=== PATIENT | female | born 1980 | race Caucasian/White ===

== ENCOUNTER 2022-07-05 09:22 | Outpatient (REF) | payer OTHER, SELFPAY ==
--- NOTE | ~2022-07-05 | MR_ITS ---
EXAMINATION: MR BRAIN WITHOUT AND WITH CONTRAST CLINICAL INFORMATION: Seizure. COMPARISON: None available. TECHNIQUE: MRI of the brain was obtained using routine sequences without and following the administration of 7.5 mL of Gadavist intravenous contrast. FINDINGS: No focal restricted diffusion is demonstrated to suggest acute or subacute cerebral ischemia. No evidence of acute hemorrhagic products on heme-sensitive imaging. Small focus of restricted diffusion within the deep white matter of the left frontal lobe consistent with petechial microhemorrhage. There is a region of cortical/subcortical T2 FLAIR hyperintensity surrounding a single sulcus in the posterior left parietal lobe without associated restricted diffusion nor enhancement. No overt volume loss at this time. Adjacent tiny developmental venous anomaly. No additional parenchymal signal abnormality. The ventricles are normal in morphology and size. No abnormal mass effect. No midline shift. The hippocampi are symmetric in size, contour, and signal intensity. The temporal horns appear symmetric. Normal appearance of the pituitary gland. Normal positioning of the cerebellar tonsils. Normal arterial and venous vascular flow voids are present. No abnormal contrast enhancement. Normal, homogeneous marrow signal. Mild mucosal thickening of the paranasal sinuses. No signal abnormalities within the mastoids. MR/MR head/brain wo/w con IMPRESSION: 1. Nonspecific region of cortical/subcortical T2 FLAIR hyperintensity surrounding a single sulcus in the posterior left parietal lobe. No associated restricted diffusion, enhancement, or volume loss. This appearance is nonspecific but may represent sequela of a subacute/chronic insult or underlying cortical dysplasia. Additionally, there is a tiny adjacent developmental venous anomaly of indeterminate clinical significance. 2. No additional acute intracranial abnormalities. No abnormal intracranial enhancement.
== END 2022-07-05 09:23 | disposition home or self-care (01) ==
LOC: HO.MRI 09:22
PROVIDERS: PCP Family Medicine; Visit Provider Psychiatry & Neurology Neurology
DX: G40.909 Epilepsy, unspecified, not intractable, without status epilepticus (principal)
CPT/HCPCS: 70553; A9585

== ENCOUNTER 2024-09-15 09:56 | Outpatient (REF) | payer OTHER, SELFPAY ==
--- NOTE | ~2024-09-15 | MR_ITS ---
EXAMINATION: MR BRAIN WITHOUT CONTRAST CLINICAL INFORMATION: Seizure disorder. COMPARISON: July 05, 2022. TECHNIQUE: MRI of the brain was obtained using routine sequences without contrast. FINDINGS: There is a focal cortical hyperintense T2 FLAIR no restricted signal abnormality centered in the superior lateral left occipital lobe posterior to the parieto-occipital sulcus without associated volume loss. Focal susceptibility signal in the left frontal deep white matter. No acute intracranial hemorrhage, mass effect, midline shift, hydrocephalus or herniation. Gomez-white matter differentiation is normal. Flow-void signal within the main cerebral vessels is normal. Sellar/suprasellar region is normal. Craniocervical junction is intact and normal. Midline structures are normal. 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 Cavernoma, left frontal white matter. Recommend IV contrast enhanced high-resolution MRI brain. Electronically signed by: Joe Overton MD 09/15/2024 11:28 AM EDT
== END 2024-09-15 09:57 | disposition home or self-care (01) ==
LOC: HO.MRI 09:56
PROVIDERS: PCP Family Medicine; Visit Provider Registered Nurse
DX: G40.909 Epilepsy, unspecified, not intractable, without status epilepticus (principal)
CPT/HCPCS: 70551

== ENCOUNTER → 2024-09-15 10:07 | Outpatient (BNV) | payer OTHER, SELFPAY | PROVIDERS: PCP Family Medicine; Visit Provider Radiology Diagnostic Radiology | DX: G40.89 Other seizures (principal) | CPT/HCPCS: 70551 ==

== ENCOUNTER 2025-02-16 14:46 | Outpatient (AMB) | payer OTHER, SELFPAY ==
--- NOTE | 2025-02-16 14:49 | A.OFFVIS_ITS ---
Intake Visit Reasons: 3m Accompanied by: Mother Allergies phenytoin (From Dilantin) Allergy (Unknown, Verified 02/16/25 14:56) Unknown Medication List - Last Reconciled 02/16/25 by Ivana Naqvi CNP cetirizine 10 mg PO DAILY levetiracetam 2,000 mg PO Q12H lorazepam 0.5 mg PO Q12H PRN HPI Comments Details: She had small episode on 02/12/2025 while waiting at bus stop for children where she could not get words out when talking with neighbor. She was able to call her mother and say mom, and she came to bus stop. It lasted less than few minutes. She was under more stress recently with children back to school and working more. She was able to take some time off work during the summer. She was also some stress as her father had some health issues and was in the hospital, and was recently diagnosed with AD. Sleep was not so good, having some trouble falling asleep. No missed doses of levetiracetam. She has not tried lorazepam. She had an episode on 09/22/2024 which she believes may have been triggered by stress. She suddenly did not feel well when putting her children to bed and told her son to call her mom who lives next door, which is the last thing she remembers. She does not remember him making the call. Her mother wrote a detailed note of the events that night which was scanned into [facility] chart. Her mother arrived a few minutes later and found her on the couch with her eyes rolled, drooling and foaming at the mouth. It lasted a few minutes. She bit her lip and both sides of her tongue. She was confused for a couple minutes afterwards and vomited. She also had some headache after. She was very tired the next day and had to take the day off work. She started increased dose of levetiracetam on 09/23/2024 and has been taking 2000mg twice a day since. Her mother has noticed an improvement in symptoms with increased dose, word retrieval and comprehension are better, which she agrees with. In 08/2024, she felt more spacey and blurry. She was having more episodes of transient speech impairment, feeling stuck for words or having trouble finding words and could not speak, usually lasting few seconds. Her mother noticed it happen when talking on the phone and sometimes her children noticed. It was previously happening more often at night and around period, but was happening anytime. She occasionally missed dose of levetiracetam 500mg 2 tablets three times a day. 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 Sleep was so-so. Still has some stress. Works 30hr/week and has two children (ages 7 and 9). Not exercising. Gets some headaches around menses, usually left sided with slight sonophobia relieved by ibuprofen. Symptoms are generally worse in winter and colder weather. No further episodes of rash or hives. Had itchy rash in 09/2022 and had and hives on upper legs, under arms, and near eyes with scratchy throat in 12/2022 after starting new bottle Keppra. Occasional black spots in the vision for a minute or two without headache. Symptoms generally better in summer. Gets blank spells where she cannot comprehend for several seconds about 1-2/ month, usually around her periods and when nervous or tired. Can't come up with right word at the time. Vision gets swirling and mind is not quite there. No loss of awareness. Can still converse and has some fading out like not there. She first started having seizures around 2004. Most of her seizures have been during sleep. She had generalized tonic-clonic convulsions with tongue biting, incontinence, followed by confusion headache and achiness. Her last seizure was around 2009. She will sometimes get an aura where she sees spots in her vision and feels like she is going to fall and feels funny. It lasts for a few minutes and is followed by a seizure. The auras occurred she started sleep deprived of stressed. She can focus and talk to people and keep her from going into a full- blown seizure. She has a family history of seizures in her mother during her reproductive years, a maternal uncle and a second cousin on the father's side. At one point she was in both Keppra and zonisamide. Review of Systems Const Denies chills, Denies daytime sleepiness, Denies difficulty sleeping, Denies fatigue, Denies fever(s), Denies frequent falls, Denies headache(s), Denies increased appetite, Denies poor appetite, Denies snoring, Denies weakness, Denies weight gain and Denies weight loss Eyes Denies loss of vision ENT Denies vertigo, Reports dizziness, Denies headache(s) and Denies neck pain Card Denies chest pain at rest, Denies chest pain with activity, Denies syncope, Denies leg edema, Denies palpitations, Denies dyspnea and Denies dyspnea on exertion Resp Denies cough, Denies dyspnea, Denies dyspnea on exertion and Denies snoring GI Denies abdominal pain, Denies constipation, Denies heartburn, Denies diarrhea and Denies nausea Denies urinary frequency, Denies urinary incontinence and Denies urinary urgency Musc Denies abnormal gait, Denies back pain, Denies myalgias, Denies arthralgias, Denies neck pain, Denies numbness and Denies tingling Neuro Denies abnormal gait, Denies vertigo, Reports dizziness, Denies syncope, Denies frequent falls, Denies headache(s), Denies lack of coordination, Denies loss of vision, Denies memory loss, Denies numbness, Denies Other visual disturbances, Denies restless legs, Denies seizure-like activity, Denies tingling, Denies paresthesias, Denies tremor(s) and Denies weakness Psych Reports anxiety, Denies depression, Denies auditory hallucinations, Denies memory loss, Denies visual hallucinations and Reports other (stress) Endo Denies fatigue and Denies palpitations Physical Exam Const Other: General Appearance:? normal, in no acute distress. Heart:? S1, S2 normal, no murmurs. Lungs:? clear anteriorly and posteriorly. Musculoskeletal:? normal. Extremities:? no edema. Psych:? alert, oriented, cognitive function intact, cooperative with exam. Neuro Other: Abnormal Neurological Findings:?none.? Mental Status: alert and oriented X 3. Normal attention, orientation, memory, and affect. Cranial Nerves: Pupils are equal, round, and reactive to light. External ocular muscles are intact. Visual puentes are full, no ptosis. Face is symmetrical, no f acial weakness or droop. Facial sensations are normal. Tongue protrudes in midline. Palate elevates symmetrically. Shoulder shrugging is normal Motor Examination: Normal muscle tone, bulk and strength. No atrophy or fasciculations. No drift of the extended upper extremities. DTR 2+. Plantars are flexor. Sensory Exam: Normal light touch, temperature, pinprick, vibration, and joint- position sensations. Rhomberg sign is absent. Coordination: No ataxia. No titubation. Gait Exam: Within normal limits. Cerebellar Signs: [id number] and [id number] is normal. No dysdiadochokinesia. Extrapyramidal System: No tremor, rigidity with normal facial expressions. No bradykinesia. No bradyphrenia. Normal arm swing and posture. No propulsion or retropulsion. Speech: Normal. No dysphasia or dysarthria. Results Reviewed Results Reviewed: 07/05/22 EEG-an active seizure focus in the left temporo parietal region with secondary spread. 07/05/22 MRI : Nonspecific region of cortical/subcortical T2 FLAIR hyperintensity surrounding a single sulcus in the posterior left parietal lobe. No associated restricted diffusion, enhancement, or volume loss. This appearance is nonspecific but may represent sequela of a subacute/chronic insult or underlying cortical dysplasia. Additionally, there is a tiny adjacent developmental venous anomaly of indeterminate clinical significance. 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 Continue lorazepam 0.5mg 1 tablet as needed q12h for anxiety/seizures, use/side effects reviewed #20 for 30 days. (2) Menstrual migraine: Code(s): G43.829 - Menstrual migraine, not intractable, without status migrainosus Category: Medical Qualifiers: Status migrainosus presence: without status migrainosus Intractability: not intractable Qualified Code(s): G43.829 - Menstrual migraine, not intractable, without status migrainosus (3) Anxiety: Code(s): F41.9 - Anxiety disorder, unspecified Category: Medical Plan: Start sertraline 25mg 1 tablet daily, use/side effects reviewed. Plan . Medications: New sertraline 25 mg PO DAILY 30 tabs 1RF 30 days levetiracetam Mylan only 2,000 mg (4 x 500 mg) PO Q12H 720 tabs 1RF 90 days Coding Level of Care Code Est Pt Level 4 (50607) Diagnoses Seizure disorder G40.909 Menstrual migraine without status migrainosus, not intractable G43.829 Status migrainosus presence: without status migrainosus Intractability: not intractable Anxiety F41.9
--- OUTSIDE RECORDS SUMMARY | 2025-02-16 17:13 | XMS_ITS | Clinical Summary ---
Author Organization [facility] Address [address] [place] [id number] Phone Care Team Providers Care Casting Supervisor Name Role Phone Meghan Myers CNM Unavailable Kylee Diehl MD Unavailable Ifeoma Nunez MD Primary Care Provider Allergies Active Allergy Reactions Criticality Noted Date Comments Phenytoin Sodium Extended Rash Low 05/20/2017 Medications levETIRAcetam (KEPPRA) 500 MG tablet 500 mg 3 (three) times a day. 2 tablets 3x a day = 3,000 mg per day Active multivitamins capsule as directed Active ascorbic acid, vitamin C, (VITAMIN C) 1000 MG tablet as directed Act jacob LORazepam (ATIVAN) 0.5 MG tablet Take 1 tablet by mouth 2 (two) times a day. 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 No new allergens in her life. Given the severe, systemic feeling of itching with mild eruption of visible dots I suspect that this is reaction to ingested allergen. Most likely culprit is drug. Advised her to throw out this bottle, start new bottle, additionally zyrtec 10 mg , increase to 20 if needed, may continue benadryl. If symptoms do not resolve, discuss switching w neurologist.RTC f not improving Menorrhagia with regular cycle 11/15/2021 Overview (11/15/2021): Heavy menses. In past got NICK with estrogen containing OCPs. Tried to have a Mirena inserted in past, but the provider could not get it past cervix. Has tried Nexplanon, which made the bleeding worse. Has also used POP in the past. Assessment & Plan (11/04/2024 3:56 PM EDT): Assessment & Plan (11/15/2021 10:19 AM EDT): She inquired re hysterectomy. We discussed TLH with preservation of ovaries, which would resolve HMB. She was also trying to figure out hormonal contribution to her seizure activity (seems more like absence episodes than full tonic clonic seizures). Discussed that hysterectomy without BSO would not affect hormonal environment. Routine medical exam 10/27/2021 Assessment & Plan (11/04/2024 3:56 PM EDT): 44 y.o. female here for complete physical exam. Medical comorbidities stable and/or managed by specialists as noted in the HPI. USPSTF A&B recommendations reviewed with pt. BP: WNL BMI: Body mass index is 28.85 kg/m . 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 Prevention: vasectomy. Not interested in hormone therapy for her periods Depression and anxiety screens: Negative IPV screen in women of reproductive age (or others PRN): Negative Smoking cessation counseling: N/A Alcohol use counseling: N/A LTBI screening in people at increased risk: N/A BrCa screening in women/AFAB people at risk: 7-Question Family History Screening Tool negative Vaccinations: recommend COVID booster Last dental visit: due, scheduled Lipid screening to consider statin for primary prevention for adults 40-75, or at younger ages with risk factors: WNL 2021, repeat 4 to 6 years Glucose/diabetes screening for people 35 - 70 with BMI >25: WNL 2021, repeat 3 to 5 years HEMOGLOBIN A1C Date Value Ref Range Status 10/23/2021 4.8 4.3 - 5.8 % Final Breast cancer risk reducing medication in people with breasts 35 and older at risk: N/A Breast cancer screening with biennial mammography for people with breasts 40 and older: up to date Assessment & Plan (10/30/2023 10:13 AM EDT): 43 y.o. female here for complete physical exam. Sounds like all of her ear sx are probably related to seasonal allergies but if tinnitus persists after allergies resovle for the summer I can refer her to ENT. Other comorbidities stable and/or managed by specialists as noted in the HPI. USPSTF A&B recommendations reviewed with pt. BP: WNL BMI: Body mass index is 29.46 kg/m . and is trying to increase exercise and watch what she eats Pap smears for people age 21-65 with a cervix: done today, last year HPV+ was first abnormal STI testing for teens and adults at risk, and at least one lifetime HIV and hep C test: Done previously and normal/negative PrEP for persons at high risk of HIV: N/A plans in the next year: No plans for . Prevention: vasectomy Depression and anxiety screens: Negative IPV screen in women of reproductive age (or others PRN): Negative Smoking cessation counseling: N/A Alcohol use counseling: N/A LTBI screening in people at increased risk: N/A BrCa screening in women/AFAB people at risk: 7-Question Family History Screening Tool negative Vaccinations: encourage COVID booster Last dental visit: up to date Lipid screening to consider statin for primary prevention for adults 40-75, or at younger ages with risk factors: WNL 2021, repeat 4-6 years This SmartLink has been updated to reference the ASCVD 2013 equation and not the 2018 equations. The 10-year ASCVD risk score (Deepika FIGUEROA, et al., 2019) is: 0.3% Values used to calculate the score: Age: 43 years Sex: Female Is Non- : No Diabetic: No Tobacco smoker: No Systolic Blood Pressure: 92 mmHg Is BP treated: No HDL Cholesterol: 59 mg/dL Total Cholesterol: 194 mg/dL Glucose/diabetes screening for people 35 - 70 with BMI >25: cristine HEMOGLOBIN A1C Date Value Ref Range Status 10/23/2021 4.8 4.3 - 5.8 % Final Breast cancer risk reducing medication in people with breasts 35 and older at risk: N/A Aspirin for primary prevention for adults 40-59 with risk >10%, but no older: N/A Breast cancer screening with biennial mammography for people with breasts 50 and older, and can consider for 40-49: encouraged to schedule Assessment & Plan (10/25/2022 3:34 PM EDT): 42 y.o. female here for complete physical exam. I recommend she try stopping the Zyrtec now to see if her rash is gone. I am referring her to a new neurologist who I hope can better guide treatment specifically in regards to the menstrual-related seizures. USPSTF A&B recommendations reviewed with pt. BP: WNL BMI: Body mass index is 29.82 kg/m . and has lost some weight since coming off control Pap smears for people age 21-65 with a cervix: done today, prviously normal STI testing for teens and adults at risk, and at least one lifetime HIV and hep C test: Done previously and normal/negative per pt PrEP for persons at high risk of HIV: N/A plans in the next year: No plans for . Prevention: currently, abstinence. Eventually, surgery of one sort or another. Depression and anxiety screens: Negative IPV screen in women of reproductive age (or others PRN): Negative Smoking cessation counseling: N/A Alcohol use counseling: N/A LTBI screening in people at increased risk: N/A BrCa screening in women/AFAB people at risk: 7-Question Family History Screening Tool negative Vaccinations: recommend COVID booster Last dental visit: up to date Lipid screening to consider statin for primary prevention for adults 40-75, or at younger ages with risk factors: WNL last year, repeat @ 5 years This SmartLink has been updated to reference the ASCVD 2013 equation and not the 2018 equations. The 10-year ASCVD risk score (Deepika FIGUEROA, et al., 2019) is: 0.3% Values used to calculate the score: Age: 42 years Sex: Female Is Non- : No Diabetic: No Tobacco smoker: No Systolic Blood Pressure: 106 mmHg Is BP treated: No HDL Cholesterol: 59 mg/dL Total Cholesterol: 194 mg/dL Glucose/diabetes screening for people 35 - 70 with BMI >25: repeat @ 5 years HEMOGLOBIN A1C Date Value Ref Range Status 10/23/2021 4.8 4.3 - 5.8 % Final Breast cancer risk reducing medication in people with breasts 35 and older at risk: N/A Aspirin for primary prevention for adults 40-59 with risk >10%, but no older: N/A Breast cancer screening with biennial mammography for people with breasts 50 and older, and can consider for 40-49: will self- schedule. Discussed new draft guidelines recommending mammography for all starting at 40 Assessment & Plan (10/27/2021 11:10 AM EDT): 41 y.o. female here for complete physical exam. USPSTF A&B recommendations reviewed with pt. BP: WNL BMI: Body mass index is 31.46 kg/m . and has really struggled with weight gain from antiepileptics. Overall has gained a lot less than predicted and we counted this as a win. 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 Prevention: discussed options for period control. considering BTL as well. will meet with Dr Duncan next month. Short of surgical intervention I think either Depo, or an IUd (which can be inserted with BZD/oral narcotics or even under sedation), is her best bet, and we discussed the difference between surgeries which would stop menstrual symptoms (endometrial ablation, hysterectomy) and which MIGHT affect her seizure d/o (oophorectomy - but this would also cause premature menopause, which comes with not insignificant additional health risks). Depression screen: Negative IPV screen in women of reproductive age (or others PRN): Negative Smoking cessation counseling: N/A Alcohol use counseling: N/A LTBI screening in people at increased risk: N/A BrCa screening in women/AFAB people at risk: 7-Question Family History Screening Tool negative Vaccinations: up to date Last dental visit: up to date Lipid screening to consider statin for primary prevention for adults 40-75, or at younger ages with risk factors: will check 2/2 BMI Glucose/diabetes screening for people 35 - 70 with BMI >25: will check Overweight 10/27/2021 Assessment & Plan (11/04/2024 3:56 PM EDT): Female dyspareunia 10/27/2021 Intractable epilepsy without status epilepticus 08/12/2018 Assessment & Plan (11/04/2024 3:56 PM EDT): Assessment & Plan (11/15/2021 10:22 AM EDT): She is doing well on Keppra monotherapy. Previously was on multiple meds. She reports increased episodes of inattentive type seizure activity (?absence) right before menses as well as first day or so. Discussed that only reliable way to prevent ovulation and hormonal fluctuation is with OCPs (not a candidate due to NICK), GnRH agonist, or oophorectomy. She will consider. Resolved Problems Problem Noted Date Diagnosed Date Resolved Date Cervicalgia 11/21/2021 10/25/2022 Assessment & Plan (11/21/2021 2:32 PM EDT): Referred to physical therapy. Encouraged gentle stretching. May use ibuprofen/tylenol as needed for pain. Use heat/ice. Consider use of topicals (Icy Hot, BioFreeze, Bengay, TigerBalm, etc). May consider massage or acupuncture. Immunizations Immunization Administration Dates Next Due COVID-19 (Pre-04/01) Blake Vaccine, [id number], PF 09/18/2020 COVID-19 (Pre-04/01) Pfizer Vaccine, mRNA, ravi-sucrose, PF 06/23/2021 Hepatitis B 08/09/2000 INFLUENZA, SPLIT VIRUS, TRIV ALENT W/ PRESERVATIVE IM 03/14/2017,05/07/2016 Influenza Quadrivalent Preservative Free IM 09/2022,04/17/2019,04/18/2018 Influenza Recombinant Jessica valent Preservative Free IM 05/25/2021 Influenza Recombinant Trival ent Preservative Free IM 03/24/2024 Influenza, Unspecified Formulation 03/29/2020 MMR 08/27/2013,01/18/1995 Tdap 02/01/2017,10/19/2014,08/31/2010 Family History Medical History Relation Comments No Known Problems Daughter Dementia Father Alzheimer's Hyperlipidemia Father Cancer Maternal Grandfather Renal Cance r Stroke Maternal Grandfather Osteoporosis Maternal Grandmother Seizures Maternal Uncle Osteoporosis Mother Seizures Mother Celiac disease Paternal Aunt Aneurysm Paternal Grandmother ITP No Known Problems Son Breast cancer Neg Hx Colon cancer Neg Hx Coronary artery disease Neg Hx Diabetes Neg Hx Ovarian cancer Neg Hx Relation Status Comments Brother Alive Daughter Alive Father Alive Maternal Grandfather Maternal Grandmother Alive Maternal Uncle Mother Alive Paternal Aunt Paternal Grandfather Paternal Grandmother Son Alive Social History Tobacco Use Types Packs/Day Years Used Date Smoking Tobacco: Never Smokeless Tobacco: Never Tobacco Cessation:Counseling Given: Not Answered Alcohol Use Standard Drinks/Week Comments Yes 0 (1 standard drink = 0.6 oz pur e alcohol) only if she goes out Child or Family Care Answer Date Record ed Do you have problems with on e of the following making it difficult for you to work, study, or receive health care? No 11/03/2024 Education Answer Date Recorded Are you interested in help w ith more adult education (for example, completing high school, GED, job training, learning the [place] language, technical skills, or developing parenting skills)? No 11/03/2024 Are you concerned about learning? Not on file 11/03/2024 No 11/03/2024 Yes 11/03/2024 Food Answer Date Recorded Within the past 6 months we worried whether our food would run out before we got money to buy more. Never True 11/03/2024 Within the past 6 months the food we bought just didn't last and we didn't have enough money to get more. Never True Residential Stability Answer Date Recor ded What is your housing situation today? I have jitendra sing 11/03/2024 How many times have you move d in the past 12 months? Zero (I did not move) 11/03/2024 Paying for Meds Answer Date Recorded Do you have trouble paying for medicines? No 11/03/2024 Paying Utility Bills Answer Date Record ed Do you have trouble paying your heating or elect ricity bill? No 11/03/2024 Transportation Answer Date Recorded Has the lack of transportati on kept you from medical appointments or from getting medications? No 11/03/2024 Unemployment Answer Date Recorded Are you currently unemployed or working on a part-time or temporary basis, and looking for work? No 11/03/2024 Digital Access Answer Date Recorded No 11/03/2024 Yes 11/03/2024 Do you have reliable internet access at home? Ye s 11/03/2024 Do you have a device (e.g., phone, tablet, computer) with a working camera? Yes 11/03/2024 Intimate Partner Violence Answer Date R ecorded Denied Basic Needs Not on file 11/03/2024 In the past 12 months have y ou been in a relationship with a person who hurts, threatens, or tries to control you? No 11/03/2024 Worried food would run out Not on file 11/03 In the past 12 months have y ou been in a relationship with a person who hurts, threatens, or tries to control you? 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 Not on file Not on file Last Filed Vital Signs Vital Sign Reading Time Taken Comments Blood Pressure 92/56 11/04/2024 10:01 AM EDT Pulse 81 11/04/2024 10:01 AM EDT Temperature 36.8 C (98.2 F) 11/04/2024 10:01 AM EDT Respiratory Rate 18 11/04/2024 10:01 AM EDT Oxygen Saturation 99% 11/04/2024 10:01 AM EDT Inhaled Oxygen Concentration - - Weight 73.3 kg (161 lb 9.6 oz) 11/04/2024 10:01 AM EDT Height 159.4 cm (5' 2.76 ) 02/14/2024 11:07 AM E DT Body Mass Index 28.85 02/14/2024 11:07 AM EDT Plan of Treatment Upcoming Encounters Date Type Department Care Team (Late st Contact Info) Description 03/08/2025 9:40 AM EDT Office Visit [facility] [address] [facility] [address] [place] [id number] Ifeoma Nunez MD [address] [place] [phone] 02/17/2026 10:00 AM EDT Office Visit [facility] [address] [facility] [address] [place] [id number] Ifeoma Nunez MD [address] [place] [id number] [email or web address] Health Maintenance Due Date Last Done Comments PAP SMEAR 10/28/2024 10/29/2023, 10/08, 04/04/2017 INFLUENZA VACCINE (#1) 2025 , 04/13/2023, 05/25/2021, Additional history exists COVID-19 VACCINE ( season) 2025 06/23/2021, 09/18/2020 DEPRESSION SCREENING 11/03/2025 11/03/2024 HEPATITIS C SCREENING 11/04/2025 Postpo mee from 2000 (Patient Declines / Guardian Declines) HIV ONE-TIME SCREENING (18-65 YEARS) 11/04/2025 Postponed from 2000 (Patient Declines / Guardian Declines) SCREENING FOR DIABETES 11/04/2025 Postp oned from 2017 (Not Clinically Appropriate) MAMMOGRAM 10/20/2026 10/20/2024 Adult Td,Tdap Booster 02/01/2027 02/01/2017 , 10/19/2014, 08/31/2010 SMOKING STATUS SCREENING (Once After 26 Yrs) Completed 11/04/2024 HEPATITIS A VACCINES Aged Out No long er eligible based on patient's age to complete this topic HIB VACCINES Aged Out No longer eligi ble based on patient's age to complete this topic MENINGOCOCCAL VACCINES (ACWY) Aged Out No longer eligible based on patient's age to complete this topic MENINGOCOCCAL VACCINES (B) Aged Out N o longer eligible based on patient's age to complete this topic PNEUMOCOCCAL VACCINES (0-49 years) Aged Out No longer eligible based on patient's age to complete this topic Medical Devices Not on file Procedures Procedure Name Priority Date/Time Associated Diagnosis Comments HM MAMMOGRAPHY Routine 10/20/2024 2:18 PM EDT PAP TEST Routine 10/29/2023 12:00 AM EDT from Last 3 Months or Most Recently Relevant to Health Maintenance Results * MAMMOGRAPHY FOR RESULT ENTRY ONLY (10/20/2024 2:18 PM EDT) us Historical Provider HEALTH MAINTENANCE Edited Result - Final * Pap Test (10/29/2023 12:00 AM EDT) 10/29/2023 10/30/2023 9:0 3 AM EDT Narrative SEE NARRATIVE - 11/05/2023 6:26 PM EDT [address] [id number] [employer] Machined [employer]: Marlene Regan MD 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 PAP SMEAR (THIN PREP) CE: SPECIMEN ADEQUACY: Satisfactory for evaluation; transformation zone present. INTERPRETATION: NEGATIVE FOR INTRAEPITHELIAL LESION OR MALIGNANCY. Reactive changes. This specimen was analyzed by the automated ThinPrep Imaging System ([employer] and manually rescreened by a sample clerk and/or pathologist. Electronically Signed Out By: MD Flory Stevens CT(ASC) MAYA Lucas([facility]) By his/her signature above, the pathologist listed as making the Final Diagnosis certifies that he/she has personally reviewed this case and confirmed or corrected the diagnosis. The Pap test is a screening test primarily for squamous cancers and precursors and has associated false-negative and false-positive results. New technologies such as liquid-based preparations may decrease but will not eliminate all false-negative results. Regular sampling and follow-up of unexplained clinical signs and symptoms are recommended to minimize false negative results. PROCEDURES/ADDENDA HPV Testing (Requested) Ordered Date: 10/30/2023 A. PAP SMEAR (THIN PREP) CE: Human Papilloma Virus TEST POSITIVE for high-risk Human Papilloma Virus type Other high risk (non-type 16, 18, or 45) probe set (Includes 31, 33, 35, 39, 51, 52, 56, 58, 59, 66, 68) Note: Additional testing was necessary to identify the most virulent high-risk strains. Negative for high-risk Human Papilloma Virus types 16, 18 and 45. Testing performed by [employer] HR-HPV analysis. Clinical correlation is advised. This HPV test was performed at [facility], [address] [place] [address]. This test has been FDA approved for both SurePath and ThinPrep cervical cytology specimens. The accuracy and precision of this test for all other specimen sources has been verified in the Cytopathology Laboratory of the [facility] and has not been cleared or approved by the U.S. Food and Drug Administration. Clinical correlation is advised. CLINICAL HISTORY Date of Last Menstrual Period: 1 WK AGO Infection History: HPV: OTHER HIGH RISK, 2022 HPV: 2023 Other Clinical Conditions: Diagnostic Pap SPECIMEN SOURCE A: PAP SMEAR (THIN PREP) CE Patient Name: KEYANA LOZA : 1980 (Age: 43) Sex: F Institution: [facility] Location: [facility] Date of Collection: 10/29/2023 Date of Reported: 11/05/2023 18:26 Results to: Ifeoma Nunez MD Ifeoma Nunez MD CYTOLOGY ORDERABLES [facility] Organization Address City/State/ZIP Co de Phone Number SEE NARRATIVE from Last 3 Months or Most Recently Relevant to Health Maintenance Insurance [address] [place], [place] [address] [address] [place], [place] [address] [place] [address] [place] [address] [place] [address] HMO HMO Care Teams Casting Supervisor Relationship Specialty Start Date End Date Ifeoma Nunez MD [address] [place] [id number] PCP - General Family Medicine 09/14/21 Meghan Myers CNM [address] [place] [id number] Historical LMR Provider 03/31/17 Kylee Diehl MD [address] [place] [id number] Historical LMR Provider 03/31/17 Additional Source Comments The information contained in this document represents components of the legal health record. It is not the complete legal health record.[facility]
--- OUTSIDE RECORDS SUMMARY | 2025-02-16 17:13 | XMS_ITS | Patient Health Record ---
Author Organization [facility] Address [address] [place] [address] Care Team Providers Care Scraper Tender Name Role Phone Bhavya Sykes Primary Care Provider Vera Gregory Unavailable [phone] Allergies Allergen (clinical drug ingredient) Drug/Non Drug Allergy documented on EMR Reaction Allergy Type Onset Date Status phenytoin Dilantin rash Drug Allergy Active Reason For Referral No Information Medications Medication SIG (Take, Route, Frequency, Duration) Notes Start Date End Date Status levETIRAcetam as directed Orally Active Norethindrone (Contraceptive) as directed orally once a day Active Social History Tobacco Use: Social History Observation Description Date Details (start date - stop date) Never Smoker NA - NA Tobacco Use/Smoking Question Answer Notes Are you a: nonsmoker Alcohol Screen Question Answer Notes Did you have a drink containing alcohol in the p ast year? Yes Points 0 Interpretation Negative Tobacco use other than smoking: Question Answer Notes Are you an other tobacco user? No Plan Of Treatment No Information Insurance Providers Payer Name Payer Address Payer Phone Subscriber Number Group Number Insured Name Patient Relationship to Insured Coverage Start Date Coverage End Date [facility] [address] [place] [place] [id number] aRdha Chin Self - patient is the insured Medical (General) History Medical History History ICD Code Cholesterol Epilepsy Seizures Headaches/Migraines Chicken pox Surgical History Surgery Date(Month/Year) X2 12/29/14,03/11/17
== END 2025-02-16 15:19 | disposition home or self-care (01) ==
LOC: HO.HSM 14:46
PROVIDERS: PCP Family Medicine; Visit Provider Registered Nurse
DX: G40.909 Epilepsy, unspecified, not intractable, without status epilepticus (principal); G43.829 Menstrual migraine, not intractable, without status migrainosus; F41.9 Anxiety disorder, unspecified
CPT/HCPCS: 99214

== ENCOUNTER 2025-04-02 11:34 | Outpatient (AMB) | payer OTHER, SELFPAY ==
--- NOTE | 2025-04-02 11:36 | MHC.OFFVIS ---
Intake Visit Reasons: 6 WEEKS Accompanied by: Mother Allergies phenytoin (From Dilantin) Allergy (Unknown, Verified 04/02/25 11:37) Unknown Medication List - Last Reconciled 04/02/25 by Ivana Naqvi CNP cetirizine 10 mg PO DAILY levetiracetam 2,000 mg (4 x 500 mg) PO Q12H 90 days lorazepam 0.5 mg PO Q12H PRN sertraline 25 mg PO DAILY 30 days HPI Comments Details: Few small spells where vision becomes blurry, then goes black briefly. Does not pass out and can hear what is going on around her, and able to pull herself out of it. She is unsure how long it lasts, less than few minutes. She gets a feeling before episodes occurs that she cannot describe and is able to tell someone to call for help. Last episode was yesterday while driving when children. It may have been triggered by bright lights. She had feeling episode was coming and pulled over. She told her children to call her mother and her vision went blurry and then black temporarily. Her children know to talk to her and she comes out of it shortly after. She had a headache after and was a bit confused and tired. She was feeling more forgetful today. She notices episodes happen more often around her period and midday. No missed doses of levetiracetam. Anxiety has been better with sertraline. She has been having some night sweats since starting medication which seem to be getting better. Sleep was not so good, having trouble falling asleep and staying asleep. She had small episode on 02/12/2025 while waiting at bus stop for children where she could not get words out when talking with neighbor. She was able to call her mother and say mom, and she came to bus stop. It lasted less than few minutes. More stress recently with children back to school and working more. She had an episode on 09/22/2024 which she believes may have been triggered by stress. She suddenly did not feel well when putting her children to bed and told her son to call her mom who lives next door, which is the last thing she remembers. Her mother wrote a detailed note of the events that night which was scanned into [facility] chart. Her mother arrived a few minutes later and found her on the couch with her eyes rolled, drooling and foaming at the mouth. It lasted a few minutes. She bit her lip and both sides of her tongue. She was confused for a couple minutes afterwards and vomited. She also had some headache after. She was very tired the next day and had to take the day off work. She started increased dose of levetiracetam on 09/23/2024 and has been taking 2000mg twice a day since. In 08/2024, she felt more spacey and blurry. She was having more episodes of transient speech impairment, feeling stuck for words or having trouble finding words and could not speak, usually lasting few seconds. Her mother noticed it happen when talking on the phone and sometimes her children noticed. It was previously happening more often at night and around period, but was happening anytime. She occasionally missed dose of levetiracetam 500mg 2 tablets three times a day. No medication side effects with levetiracetam [employer] bariatric program coordinator only. Some stress. Works 30hr/week and has two children (ages 7 and 9). Gets some headaches around menses, usually left sided with slight sonophobia relieved by ibuprofen. Symptoms are generally worse in winter and colder weather. No further episodes of rash or hives. Had itchy rash in 09/2022 and had and hives on upper legs, under arms, and near eyes with scratchy throat in 12/2022 after starting new bottle Keppra. Occasional black spots in the vision for a minute or two without headache. Symptoms generally better in summer. Gets blank spells where she cannot comprehend for several seconds about 1-2/ month, usually around her periods and when nervous or tired. Can't come up with right word at the time. Vision gets swirling and mind is not quite there. No loss of awareness. Can still converse and has some fading out like not there. She first started having seizures around 2004. Most of her seizures have been during sleep. She had generalized tonic-clonic convulsions with tongue biting, incontinence, followed by confusion headache and achiness. Her last seizure was around 2009. She will sometimes get an aura where she sees spots in her vision and feels like she is going to fall and feels funny. It lasts for a few minutes and is followed by a seizure. The auras occurred she started sleep deprived of stressed. She can focus and talk to people and keep her from going into a full-blown seizure. She has a family history of seizures in her mother during her reproductive years, a maternal uncle and a second cousin on the father's side. At one point she was in both Keppra and zonisamide. Review of Systems Const Denies chills, Denies daytime sleepiness, Denies difficulty sleeping, Denies fatigue, Denies fever(s), Denies frequent falls, Denies headache(s), Denies increased appetite, Denies poor appetite, Denies snoring, Denies weakness, Denies weight gain and Denies weight loss Eyes Denies loss of vision ENT Denies vertigo, Reports dizziness, Denies headache(s) and Denies neck pain Card Denies chest pain at rest, Denies chest pain with activity, Denies syncope, Denies leg edema, Denies palpitations, Denies dyspnea and Denies dyspnea on exertion Resp Denies cough, Denies dyspnea, Denies dyspnea on exertion and Denies snoring GI Denies abdominal pain, Denies constipation, Denies heartburn, Denies diarrhea and Denies nausea Denies urinary frequency, Denies urinary incontinence and Denies urinary urgency Musc Denies abnormal gait, Denies back pain, Denies myalgias, Denies arthralgias, Denies neck pain, Denies numbness and Denies tingling Neuro Denies abnormal gait, Denies vertigo, Reports dizziness, Denies syncope, Denies frequent falls, Denies headache(s), Denies lack of coordination, Denies loss of vision, Denies memory loss, Denies numbness, Denies Other visual disturbances, Denies restless legs, Denies seizure-like activity, Denies tingling, Denies paresthesias, Denies tremor(s) and Denies weakness Psych Reports anxiety, Denies depression, Denies auditory hallucinations, Denies memory loss, Denies visual hallucinations and Reports other (stress) Endo Denies fatigue and Denies palpitations Physical Exam Const Other: General Appearance:? normal, in no acute distress. Heart:? S1, S2 normal, no murmurs. Lungs:? clear anteriorly and posteriorly. Musculoskeletal:? normal. Extremities:? no edema. Psych:? alert, oriented, cognitive function intact, cooperative with exam. Neuro Other: Abnormal Neurological Findings:?none.? Mental Status: alert and oriented X 3. Normal attention, orientation, memory, and affect. Cranial Nerves: Pupils are equal, round, and reactive to light. External ocular muscles are intact. Visual puentes are full, no ptosis. Face is symmetrical, no facial weakness or droop. Facial sensations are normal. Tongue protrudes in midline. Palate elevates symmetrically. Shoulder shrugging is normal Motor Examination: Normal muscle tone, bulk and strength. No atrophy or fasciculations. No drift of the extended upper extremities. DTR 2+. Plantars are flexor. Sensory Exam: Normal light touch, temperature, pinprick, vibration, and joint-position sensations. Rhomberg sign is absent. Coordination: No ataxia. No titubation. Gait Exam: Within normal limits. Cerebellar Signs: Hoiadb-vq-fabr and njlu-ha-dzvc is normal. No dysdiadochokinesia. Extrapyramidal System: No tremor, rigidity with normal facial expressions. No bradykinesia. No bradyphrenia. Normal arm swing and posture. No propulsion or retropulsion. Speech: Normal. No dysphasia or dysarthria. Results Reviewed Results Reviewed: 07/05/22 EEG-an active seizure focus in the left temporo parietal region with secondary spread. 07/05/22 MRI : Nonspecific region of cortical/subcortical T2 FLAIR hyperintensity surrounding a single sulcus in the posterior left parietal lobe. No associated restricted diffusion, enhancement, or volume loss. This appearance is nonspecific but may represent sequela of a subacute/chronic insult or underlying cortical dysplasia. Additionally, there is a tiny adjacent developmental venous anomaly of indeterminate clinical significance. 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 With twice a day dosing, she was no longer missing doses. She has allergy to Dilantin and recalls trying Depakote in the past. She is hesitant to try new medications due to potential allergic reactions, given allergy to Dilantin (rash) and history of reaction to filler ingredients after taking levetiracetam from different bariatric program coordinator. In the past, seizures were treated with levetiracetam and zonisamide 100mg daily which she tolerated well. Give that she has been on zonisamide in the past without issue, will start medication again to see if better seizure control can be achieved. Start zonisamide 100mg 1 tablet at bedtime, use/side effects reviewed. Continue levetiracetam 500mg 4 tablets every 12 hours - [facility] only. Continue lorazepam 0.5mg 1 tablet as needed q12h for anxiety/seizures, use/side effects reviewed #20 for 30 days. (2) Menstrual migraine: Code(s): G43.829 - Menstrual migraine, not intractable, without status migrainosus Category: Medical Qualifiers: Status migrainosus presence: without status migrainosus Intractability: not intractable Qualified Code(s): G43.829 - Menstrual migraine, not intractable, without status migrainosus (3) Anxiety: Code(s): F41.9 - Anxiety disorder, unspecified Category: Medical Plan: Continue sertraline 25mg 1 tablet daily. Plan Meds tried: Dilantin, Depakote Medications: New zonisamide 100 mg PO DAILY 30 caps 2RF 30 days Changed From sertraline 25 mg PO DAILY 30 days 30 tabs 1RF To sertraline 25 mg PO DAILY 90 tabs 1RF 90 days Refilled levetiracetam [facility] only 2,000 mg (4 x 500 mg) PO Q12H 720 tabs 1RF 90 days Coding Level of Care Code Est Pt Level 4 (46300) Diagnoses Seizure disorder G40.909 Menstrual migraine without status migrainosus, not intractable G43.829 Status migrainosus presence: without status migrainosus Intractability: not intractable Anxiety F41.9
--- OUTSIDE RECORDS SUMMARY | 2025-04-02 14:01 | XMS_ITS | Clinical Summary ---
Author Organization [facility] Address [address] [place] [id number] Phone Care Team Providers Care Assisted Living Housekeeper Name Role Phone Lucia Meghan CAAL Unavailable Kylee Diehl MD Unavailable Ifeoma Nunez [...] once daily 90 tablet 3 11/06/2024 Active sertraline (ZOLOFT) 25 MG tablet Take 1 tablet by mouth every morning. 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 Has history of HPV, last year's colposcopy was normal. Patient declines flu shot today. States her children will not get the vaccine unless she gets it with them. Orders: Pap Test Assessment & Plan (11/04/2024 3:56 PM EDT): [...] Recommend increasing exercise; provided list of local precision grinder external Pap smears for people age 21-65 with [...] cervix: due in march, will do with [employer] STI testing for teens and adults at [...] [employer], etc). May consider massage or acupuncture. Encounters Date Type Department Care Team Description 03/25/2025 Telephone [facility] [address] [place] [address] Ifeoma Nunez MD Results 03/17/2025 8:00 AM EDT Office Visit [facility] [address] [place] [address] Ifeoma Nunez MD Cervical high risk HPV (human papillomavirus) test positive (Primary Dx) from Last 3 Months Immunizations Immunization Administration Dates Next Due COVID-19 (Pre-04/01) Interventional Imaging Vaccine, [id number], PF 09/18/2020 COVID-19 (Pre-04/01) Pfizer [...] History Relation Comments No Known Problems Daughter Bradycardia Father pacemaker Dementia Father Alzheimer's Hyperlipidemia Father Cancer Maternal [...] Not Answered Alcohol Use Standard Drinks/Week Comments Not Currently 0 (1 standard drink = 0.6 oz [...] high school, GED, job training, learning the [place] Citizen language, technical skills, or developing parenting skills)? [...] your housing situation today? 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 file Not on file Last Filed Vital Signs Vital Sign Reading Time Taken Comments Blood Pressure 112/72 03/17/2025 8:04 AM EDT Pulse 95 03/17/2025 8:04 AM EDT Temperature 36.8 C (98.2 F) 11/04/2024 10:01 AM EDT Respiratory Rate 18 11/04/2024 10:0 1 AM EDT Oxygen Saturation 99% 03/17/2025 8:04 AM EDT Inhaled Oxygen Concentration - - Weight 73.8 kg (162 lb 12.8 oz) 03/17/2025 8:04 AM EDT Height 159.4 cm (5' 2.76 ) 02/14/2024 1 1:07 AM EDT Body Mass Index 29.06 02/14/2024 11:07 AM EDT Plan of Treatment Upcoming Encounters Date Type Department Care Team (Late st Contact Info) Description 02/17/2026 10:00 AM EDT Office Visit [facility] [address] [place] [address] [address] [phone] Ifeoma Nunez MD [address] [facility] [address] [place] [address] [email or web address] Health Maintenance Due Date Last Done Comments COVID-19 VACCINE ( season) 2025 06/23/2021, 09/18/2020 DEPRESSION SCREENING 11/03/2025 11/03/2024 HEPATITIS C SCREENING 11/04/2025 Postpo mee from 2000 (Patient Declines / Guardian Declines) HIV ONE-TIME SCREENING (18-65 YEARS) 11/04/2025 Postponed from 2000 (Patient Declines / Guardian Declines) SCREENING FOR DIABETES 11/04/2025 Postp oned from 2017 (Not Clinically Appropriate) INFLUENZA VACCINE (#1) 2025 , 04/13/2023, 05/25/2021, Additional history exists Postponed from 01/08/2025 (Patient Declines / Guardian Declines) PAP SMEAR 03/17/2026 03/17/2025, 10/09, 10/24/2022, Additional history exists MAMMOGRAM 10/20/2026 10/20/2024 Adult Td,Tdap Booster 02/01/2027 02/01/2017 , 10/19/2014, 08/31/2010 SMOKING STATUS SCREENING (Once After 26 Yrs) Completed 03/17/2025 HEPATITIS A VACCINES Aged Out No long [...] Procedure Name Priority Date/Time Associated Diagnosis Comments PAP TEST Routine 03/17/2025 12:00 AM EDT HM MAMMOGRAPHY Routine 10/20/2024 2:18 PM EDT from Last 3 Months or Most Recently Relevant to Health Maintenance Results * Pap Test (03/17/2025 12:00 AM EDT) Report [address] [id number] Senior Private Client Advisor: Yasir Alcaraz MD [employer] Cytology Report FINAL DIAGNOSIS A. PAP SMEAR (THIN PREP) CE: SPECIMEN ADEQUACY: Satisfactory for evaluation; transformation zone present. INTERPRETATION: NEGATIVE FOR INTRAEPITHELIAL LESION OR MALIGNANCY. This specimen was analyzed by the automated ThinPrep Imaging System ([employer].) and manually rescreened by a dairy husbandman and/or pathologist. Electronically Signed Out By: MAYA Lucas(ASCP) MAYA Castillo(ASCP) The Pap test is a screening test primarily for squamous cancers and precursors and has associated false-negative and false-positive results. New technologies such as liquid-based preparations may decrease but will not eliminate all false-negative results. Regular sampling and follow-up of unexplained clinical signs and symptoms are recommended to minimize false negative results. PROCEDURES/ADDENDA HPV Testing (Requested) Ordered Date: 03/18/2025 A. PAP SMEAR (THIN PREP) CE: High-risk HPV Panel w/ extended genotyping POS HPV 16-NEG HPV 18-NEG HPV 45-NEG HPV 33/58-NEG HPV 31-NEG HPV 56/59/66-NEG HPV 51-NEG HPV 52-NEG HPV 35/39/68-POS Performed by real-time polymerase chain reaction (PCR) at [facility], [address] [place] [address] using the FDA-approved BD Onclarity HPV Assay with extended genotyping. Uses of the assay in scenarios other than those approved by the FDA should be considered off-label use. The accuracy and precision of this test for all other off-label specimen sources has been verified in the Cytopathology Laboratory of the [facility] and has not been cleared or approved by the U.S. Food and Drug Administration. Clinical correlation is advised. The assay assesses the E6/E7 DNA target and utilizes human beta globin as an internal control. Cytology and HPV testing are screening assays and should not be used as the sole means of detecting cancer. False-positives and false-negatives can occur. CLINICAL HISTORY Date of Last Menstrual Period: 03-05-2025 Infection History: HPV: OTHER HIGH RISK, 2022, 2023 HPV: 2024 Other Clinical Conditions: Diagnostic Pap SPECIMEN SOURCE A: PAP SMEAR (THIN PREP) CE Patient Name: KEYANA LOZA : 1980 (Age: 44) Sex: F Institution: [facility] Location: [facility] Date of Collection: 03/17/2025 Date of Reported: 03/25/2025 10:21 Results to: Ifeoma Nunez MD [facility] Final Diagnosis A. PAP SMEAR (THIN PREP) CE: SPECIMEN ADEQUACY: Satisfactory for evaluation; transformation zone present. INTERPRETATION: NEGATIVE FOR INTRAEPITHELIAL LESION OR MALIGNANCY. This specimen was analyzed by the automated ThinPrep Imaging System ([employer].) and manually rescreened by a dairy husbandman and/or pathologist. [facility] Results\Inte rpretation A. PAP SMEAR (THIN PREP) CE: High-risk HPV Panel w/ extended genotyping POSHPV 16-NEG HPV 18-NEG HPV 45-NEG HPV 33/58-NEG HPV 31-NEG HPV 56/59/66-NEG HPV 51-NEG HPV 52-NEG HPV 35/39/68-POSPerform ed by real-time polymerase chain reaction (PCR) at [facility], [address] [place] [address] using the FDA-approved BD Onclarity HPV Assay with extended genotyping. Uses of the assay in scenarios other than those approved by the FDA should be considered off-label use. The accuracy and precision of this test for all other off-label specimen sources has been verified in the Cytopathology Laboratory of the [facility] and has not been cleared or approved by the U.S. Food and Drug Administration. Clinical correlation is advised. The assay assesses the E6/E7 DNA target and utilizes human beta globin as an internal control. Cytology and HPV testing are screening assays and should not be used as the sole means of detecting cancer. False-positives and false-negatives can occur. [facility] Conversion Type 03/17/2025 9:37 AM EDT us Ifeoma Nunez MD CYTOLOGY ORDERABLES Edited R esult - Final [facility] [address] [place] [address] * MAMMOGRAPHY FOR RESULT ENTRY ONLY (10/20/2024 2:18 PM EDT) Historical Provider HEALTH MAINTENANCE Edited Result - Final from Last 3 Months or Most Recently Relevant to Health Maintenance Insurance [address] [place], [place] [id number] [facility] [place] [address] [place] [address] [place] [place] [address] [place], [place] [id number] HMO Member Subscriber Plan / Payer (Ef fective 2016-Present) Name:Keyana Loza Relation to Subscriber:Spouse Name:JAYLIN LOZA Date of :1983 (Home) Address: [address] [place] [address] Payer ID:Not on file Type:HMO Address: [place] [id number] Care Teams Assisted Living Housekeeper Relationship Specialty Start Date End Date Ifeoma Nunez MD [address] [place] [id number] PCP - General Family Medicine 09/14/21 Meghan Myers CNM [address] [place] [id number] Historical LMR Provider 03/31/17 Kylee Diehl MD [address] [place] [id number] Historical LMR Provider 10/22/17 Additional Source Comments The information contained in this document represents components of the legal health record. It is not the complete legal health record.[facility]
--- OUTSIDE RECORDS SUMMARY | 2025-04-02 14:03 | XMS_ITS | Patient Health Record ---
Author Organization [facility] Address [address] [place] [address] Care Team Providers Care Manager Transport Name Role Phone Bhavya Sykes Primary Care Provider Vera Gregory Unavailable [phone] Allergies Allergen (clinical drug ingredient) Drug/Non Drug [...] Insured Coverage Start Date Coverage End Date [facility] [address] [place] [address] [phone] [id number] Radha Chin Self - patient is the insured Medical (General) History Medical History History ICD Code Cholesterol Epilepsy Seizures Headaches/Migraines Chicken pox Surgical History Surgery Date(Month/Year) X2 12/29/14,03/11/17
--- OUTSIDE RECORDS SUMMARY | 2025-04-02 14:03 | XMS_ITS | Encounter Summary ---
Author Organization [facility] Address [address] [place] [address] Phone Care Team Providers Care Stock Counter Name Role Phone WesleyMeghan murray CNM Unavailable Kylee Diehl MD Unavailable Ifeoma Nunez MD Primary Care Provider + [phone] Reason for Referral * Consultation (Within 1 month) - New Request Specialty Diagnoses / Procedures Referred By Contaaron t Referred To Contact Obstetrics and Gynecology Diagnoses Cervical high risk HPV (human papillomavirus) test positive Ifeoma Nunez MD [address] [place] [address] Phone: tel: fax: [email or web address] [facility] [address] [place] [address] Phone: tel: Referral ID Status Reason Start Date Expiration Date V isits Requested Visits Authorized [id number] New Request 03/25/2025 03/25/2026 1 1 Scheduling Instructions Please book with Dr. Lua Reason for Visit * Reason Onset Date Comments Results 03/25/2025 Encounter Details Date Type Department Care Team (Late st Contact Info) Description 03/25/2025 Telephone [facility] [address] [place] [address] [address] [place] [address] Ifeoma Nunez MD [address] [place] [address] [email or web address] Results Social History Tobacco Use Types Packs/Day Years Used Date Smoking Tobacco: Never Smokeless Tobacco: Never Alcohol Use Standard Drinks/Week Comments Not Currently [...] high school, GED, job training, learning the Mongolian language, technical skills, or developing parenting skills)? 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 Referred to Dr. Lua again Left detailed message on [employer]. Pt to call back or send a portal message with any concerns or questions. documented in this encounter Plan of Treatment Upcoming Encounters Date Type Department Care Team (Late st Contact Info) Description 02/17/2026 10:00 AM EDT Office Visit [facility] [place] [facility] [address] [place] [address] Ifeoma Nunez MD [address] [place] [address] [email or web address] Scheduled Referrals Name Type Priority Associated Diagnoses Order Schedule Ambulatory referral to [facility] Gynecology Outpatient Referral Routine Cervical high risk HPV (human papillomavirus) test positive Ordered: 03/25/2025 documented as of this encounter Visit Diagnoses Diagnosis Cervical high risk HPV (human papillomavirus) test positive- Primary Cervical high risk human papillomavirus (HPV) DNA test positive documented in this encounter Additional Health Concerns Assessment Noted Time PHQ-2 Depression Total Score: 1 11/04/19 25 4:02 PM EDT documented as of this encounter Care Teams Stock Counter Relationship Specialty Start Date End Date Ifeoma Nunez MD [address] [place] [address] PCP - General Family Medicine 09/14/21 Meghan Myers CNM [address] [place] [address] Historical LMR Provider 03/31/17 Kylee Diehl MD [address] [place] [address], [address] [place] [address] Historical LMR Provider 03/31/17 documented as of this encounter Additional Source Comments The information contained in this document represents components of the legal health record. It is not the complete legal health record.[facility]
== END 2025-04-02 12:06 | disposition home or self-care (01) ==
LOC: HO.HSM 11:35
PROVIDERS: PCP Family Medicine; Visit Provider Registered Nurse
DX: G40.909 Epilepsy, unspecified, not intractable, without status epilepticus (principal); G43.829 Menstrual migraine, not intractable, without status migrainosus; F41.9 Anxiety disorder, unspecified
CPT/HCPCS: 99214